=== PATIENT | male | born 1930 | race Caucasian/White ===

== ENCOUNTER 2017-02-20 22:20 | Inpatient (IN) | payer MEDICARE, OTHER ==
--- NOTE | ~2017-02-20 | CN ---
Consultation Report [facility] [address] [place]. [address] NAME: MACARENA DUMONT : 32 STATUS : ADM IN PAT#: [id number] AGE: 86 ADM/REG DATE : 02/21/17 MR#: [id number] REPORT SERV DATE: 02/21/17 DICTATED BY: JED ZARATE DATE: 02/21/17 REPORT STATUS : Draft TRANSCRIBED BY: MODL DATE: 02/21/17 GI CONSULTATION DATE OF CONSULTATION: 02/21/2017 REASON FOR CONSULTATION: Evaluation and management of ileus, fecal impaction in a patient with a history of chronic constipation. HISTORY OF PRESENT ILLNESS: Mr. Macarena Dumont is an 86-year-old male patient, who is known to Dr. Osman Jolly in the outpatient setting, who was admitted on 02/21/2017 with a chief complaint of abdominal pain, nausea with vomiting. CT scan done on admission without contrast showed a large amount of fecal material throughout the colon consistent with fecal impaction as well as some distended loops of small bowel. He has been given magnesium citrate as well as some other laxatives. He states he has had three bowel movements. He states his abdominal pain has improved and his nausea has subsided. His last colonoscopy was done on 11/16/2014 with adequate prep being obtained and internal hemorrhoids were the only finding. On 02/24/2015, he had a small bowel enteroscopy by Dr. 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 I have seen and evaluated the patient. He states that he takes Metamucil religiously, but only as needed Colace. He does not have a consistent bowel regimen. His abdominal pain at home increased over the last few days with the inability to pass gas or have a bowel movement. Then, he had developed nausea with vomiting bilious in nature. Thus, presented to [facility] for further evaluation. PAST MEDICAL HISTORY: Positive for chronic kidney disease, stage IV; history of obstructive sleep apnea; atrial fibrillation; diverticulitis; bladder cancer; iron deficiency anemia; AVMs; peripheral vascular disease; pancytopenia with frequent transfusions; compression fracture L1 vertebrae with kyphoplasty by Dr. Bosch; hypothyroidism; hypertension; hyperlipidemia; restless legs syndrome; Ash esophagus; gout; obstructive sleep apnea with CPAP usage; kidney stones; hemorrhoid, cerebral aneurysm with intracerebral hemorrhage in 05/2015; esophageal diverticula and patching; bladder cancer, status post excision. SURGICAL HISTORY: Carotid endarterectomy, CABG, cardiac stents, bladder tumor excision, inguinal hernia repair, Zenker diverticulum repair, and pacemaker placement. SOCIAL HISTORY: He is . He still lives independently. He denies alcohol, tobacco, or illicits. He has one daughter, who is present at the bedside. FAMILY HISTORY: Noncontributory from a GI standpoint. ALLERGIES: ADHESIVE TAPE. Consultation Report [address] [address] NAME: MACARENA DUMONT : 32 STATUS : ADM IN [facility]#: [id number] AGE: 86 ADM/REG DATE : 02/21/17 MR#: [id number] REPORT SERV DATE: 02/21/17 DICTATED BY: JED ZARATE DATE: 02/21/17 REPORT STATUS : Draft TRANSCRIBED BY: ESTELITA DATE: 02/21/17 HOME MEDICATIONS: Zyloprim, Enrique Aspirin, Tums, Colace, Lasix, Synthroid, Cozaar, minoxidil, Ditropan, Afrin, Protonix, potassium, Mirapex, Metamucil, Zocor, Hytrin, Maxzide, and Aranesp. REVIEW OF SYSTEMS: A 10-point review of systems has been obtained with pertinent positives being addressed in the history of present illness. PHYSICAL EXAMINATION: VITAL SIGNS: Temperature 98.4, pulse 80, respirations 18, blood pressure 92/54. NEURO: Reveals an alert male, resting in bed with no focal deficits. GENERAL: He is cooperative. He is in no acute distress at present. He is awake, alert, and oriented x3. HEAD, EARS, EYES, NOSE, AND THROAT: Anicteric. Pupils equal, round, reactive to light and accommodation. Normocephalic, atraumatic. NECK: No JVD. No palpable nodes. LUNGS: Clear in the upper lobes. Diminished bilaterally in the bases with normal respiratory effort exhibited. CARDIOVASCULAR SYSTEM: Regular rate and rhythm. ABDOMEN: Mildly distended with extremely hypoactive bowel sounds. No rebound or guarding elicited on exam. EXTREMITIES: No edema. Normal distal pulses. SKIN: Warm, dry, and intact. PERTINENT LABORATORY DATA: Sodium 143, potassium 4.0, BUN is 83, creatinine 3.04. White blood cell count 5.7, hemoglobin 9, hematocrit 28. INR 1.2. ASSESSMENT: 1. Abdominal pain, nausea, vomiting. 2. Ileus. 3. Fecal impaction. 4. Chronic constipation. PLAN: 1. Clear liquid diet. 2. Disimpaction and laxatives. 3. We need to set him up with a consistent bowel regimen at time of discharge. 4. Serial imaging until disimpaction has been achieved. We will follow. YONG/ESTELITA MARY GRACE Huff Consultation Report [address] [place]. [address] NAME: MACARENA DUMONT : 32 STATUS : ADM IN PAT#: [id number] AGE: 86 ADM/REG DATE : 02/21/17 MR#: [id number] REPORT SERV DATE: 02/21/17 DICTATED BY: JED ZARATE DATE: 02/21/17 REPORT STATUS : Draft TRANSCRIBED BY: ESTELITA DATE: 02/21/17 / [id number] CC: DO Julianna Mallory M.D.
--- NOTE | ~2017-02-20 | DS ---
Discharge Summary [facility] [address] [place]. [address] NAME: MACARENA DUMONT : 32 STATUS : DIS IN PAT#: [id number] AGE: 86 ADM/REG DATE : 02/21/17 MR#: [id number] REPORT SERV DATE: 02/27/17 DICTATED BY: MAMI LINK DATE: 02/23/17 REPORT STATUS : Draft TRANSCRIBED BY: MODL DATE: 02/23/17 ADMISSION DATE: 02/21/2017 DISCHARGE DATE: 02/23/2017 HOSPITAL COURSE: An 86-year-old male with known history of diverticulitis; bladder cancer; CKD, sees Dr. Mims with Aranesp administration as well; history of atrial fibrillation, seems to be proximal, however he is on no rate controlling medication as an outpatient, rate has been stable on day of discharge. He has a known history of MEKA, PAD, carotid disease, at one time required Plavix with aspirin full dose, history of pancytopenia, frequent transfusions, compression fracture of L1 vertebrae, kyphoplasty done by Dr. Bosch in the past, history of right upper lobe and pulmonary nodule should follow up with his outpatient ticket seller. The patient came in with severe abdominal pain with vomiting. He states that his takes care of him. He has about one bowel movement normally a day, then began to get constipated despite taking psyllium and Metamucil. The walked in the room, found him in the bathroom with severe pain, moaning. He had a CT of the abdomen and pelvis. Generalized ileus, no obstruction, seen to have impaction by me. The patient was started on Mag citrate. He have DU and CKD was given normal saline. The patient had two bowel movements. By the time I saw the patient he was already beginning to get disimpacted automatically. I D/C'd his triamterene/HCTZ given his DU, started him on Mag citrate. The patient dropped his hemoglobin significantly 9 to 6.9, I gave him 2 units of blood. A guaiac came back to be positive, it was mild, but the patient denied any overt melena nor hematochezia, it could have been a hard stool abrading against a hemorrhoid. GI had seen the patient too, tried to go lightly to clear. The patient had a reaction to Reglan, this is listed as an allergy. I placed the patient on PPI. I gave iron dextran today. The patient adamantly would like to go home. I would like the patient go to a facility for better monitoring, the patient wants go home. As a result, we will discharge home with home health, home PT, transfer facility as an outpatient. See GI in hopefully 1 to 3 weeks for possible scope in the interim. Needs to have no antiplatelets until he is cleared by GI as an outpatient and have 2 bowel movements a day as his goal with half of his plate being vegetables which the patient is a meat lover he attests. DISCHARGE MEDICATIONS: 1. Protonix 40 mg p.o. b.i.d. empirically. 2. Allopurinol 200 mg p.o. daily. 3. Dulcolax 10 mg per rectal b.i.d. 4. Synthroid 100 mcg p.o. q.a.m., we would repeat a free T4 as an outpatient. 5. Minoxidil 10 mg p.o. b.i.d. home dose. 6. Losartan 25 mg p.o. daily, would resume given his baseline creatinine is resumed. 7. Ditropan 10 mg p.o. q.a.m. 8. Protonix 40 mg p.o. b.i.d. 9. MiraLAX one packet p.o. b.i.d., titrate 2 bowel movements a day with his psyllium and this Dulcolax. 10.Mirapex 1.5 mg p.o. q.h.s. Discharge Summary [address] [address] NAME: MACARENA DUMONT : 32 STATUS : DIS IN PAT#: [id number] AGE: 86 ADM/REG DATE : 02/21/17 MR#: [id number] REPORT SERV DATE: 02/27/17 DICTATED BY: MAMI LINK DATE: 02/23/17 REPORT STATUS : Draft TRANSCRIBED BY: MODL DATE: 02/23/17 11.Zocor 20 mg p.o. q.h.s. 12.Hytrin 2 mg p.o. q.h.s. 13.Resume his aspirin likely is an 81 mg dose one sees GI as an outpatient. 14.Lasix 40 mg p.o. q.a.m. with KCl 20 mg p.o. daily. 15.Hydralazine 25 mg p.o. t.i.d. p.r.n. systolic more than 160. 16.Colace 100 mg p.o. b.i.d., p.r.n. We will also qualify the patient for oxygen if he needs to, discharge 2 L nasal cannula primary lung disease, this is the case we would need to have pulmonary function test and follow up with ticket seller. In the interim we will try incentive spirometry 10 times an hour give at home. CONSULTS: GI. PROCEDURES: None. He had a serial KUB that showed improved gas distention. Last bowel movement was last night. The patient feels ready to go home and adamantly would like to go home despite consideration for further workup, going to facility as well. DISCHARGE DIAGNOSES: 1. Chronic kidney disease. 2. Acute kidney injury. 3. History of bladder cancer. 4. Atrial fibrillation. 5. Compression fracture. 6. Osteoporosis. 7. History of coronary artery disease. 8. Coronary artery bypass graft. 9. Peripheral arterial disease. 10.Ileus. Educated on drinking at least 1.5 L of water a day to promote peristalsis. All questions were answered. It took well over 30 minutes to do. ADDENDUM I suspect patient may have some internal hemorrhoids. We will give him Anusol per rectal should follow up with GI. If the patient did have some mild guaiac positivity more likely result of hard stools, initial fecal impaction, past hard stool on to hemorrhoid. He was given IV iron, PRBC infusion prior. Discontinue any antiplatelets until possibly scoped as an outpatient. The patient seems interested at the age 86. Updated discharge MAR including Mag citrate p.r.n. target one to two bowel movements a day. Anusol p.r.n., needs to drink at least 1.5 L of water. The patient does not like water, I instructed to use flavoring solution. We will add losartan as he is back at his baseline of creatinine. Could consider use of just Plavix as an antiplatelet if he does have any bleeding risk on aspirin and Plavix. This is known history of PAD. See rest of my orders. All questions were answered, it took over 30 minutes to do. Discharge Summary [facility] [address] [place]. [address] NAME: MACARENA DUMONT : 32 STATUS : DIS IN PAT#: [id number] AGE: 86 ADM/REG DATE : 02/21/17 MR#: [id number] REPORT SERV DATE: 02/27/17 DICTATED BY: MAMI LINK DATE: 02/23/17 REPORT STATUS : Draft TRANSCRIBED BY: ESTELITA DATE: 02/23/17 DICTATED BY: Mami Link DO WST/ESTELITA Mami Link DO / [id number] / [id number] CC: DO Julianna Mallory M.D.
--- NOTE | ~2017-02-20 | HP ---
History And Physical [place] [id number] [place] [place]. [address] NAME: MACARENA DUMONT : 32 STATUS : ADM Nathalie PAT#: [id number] AGE: 86 ADM/REG DATE : 02/21/17 MR#: [id number] REPORT SERV DATE: 02/21/17 DICTATED BY: JAVI ANN DATE: 02/21/17 REPORT STATUS : Draft TRANSCRIBED BY: MODL DATE: 02/21/17 DATE OF ADMISSION: 02/21/2017 CHIEF COMPLAINT: Severe abdominal pain and vomiting. HISTORY OF PRESENT ILLNESS: This is an 86-year-old male, who has a history of diverticulitis, history of bladder cancer, chronic kidney disease, and atrial fibrillation who has been in his usual state of health and was brought in today after he had an episode of severe abdominal pain. History is obtained from the patient and his , who is at bedside, and reviewing data available on the [facility] system. According to the patient and his , he had been in his usual state of health until about a week or two ago, when he started having abdominal pain. His had noted that he spends most of his time in the bathroom trying to have bowel movements. He had tried Metamucil that he is on regularly. He had tried other oral [id number] stuff but nothing seemed to help him. Today, she walked into his room only to find him in the bathroom but this time when she saw him he had severe pain, was almost crying out and moaning that he wanted to see a doctor and needed help. She somehow was able to help him back to the bed and then called 911 for help. The patient was subsequently brought to the emergency room for evaluation. In the emergency room, initial workup including a CT scan of his abdomen and pelvis showed generalized ileus but without any obstruction. The patient also had acute on chronic kidney disease and severe abdominal pain, requiring intravenous administration of narcotic analgesics. Hospitalist Service is asked to admit him for further evaluation and treatment. At the time of my evaluation, he denied any chest pain, palpitations, or orthopnea. He did not have any cough, hemoptysis, night sweats, or weight loss. He has not had any recent fevers or chills. He did have an episode of nausea and vomiting while at home. In the emergency room, he had another episode as well. Both were bilious in nature. There was no blood. No history of diarrhea, hematemesis, hematochezia, or hematuria other than those mentioned above. PAST MEDICAL HISTORY: Significant for history of chronic kidney disease stage 4, history of obstructive sleep apnea, atrial fibrillation, history of diverticulitis, bladder cancer. He also has history of peripheral vascular disease, pancytopenia with frequent transfusions in the past, compression fracture of the L1 vertebra with kyphoplasty done by Dr. Bosch, and a history of right upper lobe nodule, pulmonary nodule as well. SOCIAL HISTORY: He does not smoke, drink, or use recreational drugs. FAMILY HISTORY: Noncontributory. MEDICATIONS: At home were reviewed by me in the chart today and reordered by me. REVIEW OF SYSTEMS: As in history of present illness. All other systems were reviewed in detail and are quite History And Physical [address] [address] NAME: MACARENA DUMONT : 32 STATUS : ADM Nathalie PAT#: [id number] AGE: 86 ADM/REG DATE : 02/21/17 MR#: [id number] REPORT SERV DATE: 02/21/17 DICTATED BY: JAVI ANN DATE: 02/21/17 REPORT STATUS : Draft TRANSCRIBED BY: ESTELITA DATE: 02/21/17 unremarkable. PHYSICAL EXAMINATION: GENERAL: This is a pleasant 86-year old, not in any acute distress. HEENT: His head is atraumatic, normocephalic. He is alert, awake, oriented to time, place, and person. Pupils are equal, reacting to light and accommodating. External ocular muscles are intact. Membranes are moist and pink. Sclerae are nonicteric. NECK: Supple with no jugular venous distention, lymphadenopathy, or thyromegaly. LUNGS: Clear to auscultation with no wheezes, rubs, or crackles. HEART: Heart sounds were regular with no murmurs, rubs, or gallops. ABDOMEN: Soft, nontender. Bowel sounds are present. EXTREMITIES: Showed no cyanosis, clubbing, or edema. NEUROLOGIC: Grossly intact. No focal sensory or motor deficits. Higher functions appeared intact. VITAL SIGNS: His vital signs today showed a temperature of 98.9, pulse 92, respirations 17 a minute, blood pressure was 124/59, oxygen saturation 97%, breathing 2 L of oxygen via nasal cannula. LABORATORY DATA: Reviewed on the [facility] system today showed sodium of 144, potassium 3.7, chloride 107, CO2 of 25, BUN was 79 with a creatinine of 3.20 which is up from his baseline. His blood glucose was 149. Lipase was 102 today. Alkaline phosphatase, ALT, and AST were within normal limits. CBC showed a white blood cell count of 6900, hemoglobin was 9, hematocrit 27.8 which is about his baseline. MCV was 93.6, and platelet count was 140,000. Urinalysis today did not reveal any gross abnormality. Films of the CT scan of his abdomen pelvis were reviewed by me, and official radiology report was also reviewed. This is virtual read which said generalized ileus with no obstruction or other significant abnormalities. IMPRESSION: 1. Abdominal pain. 2. Ileus. 3. Nausea and vomiting. 4. Coronary artery disease with coronary artery bypass graft. 5. Hypothyroidism. 6. Acute on chronic kidney disease stage 4. 7. Obstructive sleep apnea. 8. History of atrial fibrillation. 9. History of diverticulitis. 10.History of bladder cancer. 11.Peripheral vascular disease. 12.Pancytopenia. PLAN: We will admit Mr. Dumont to the Hospitalist Service with defensive monitoring. This will be for a 24-hour observation period. We will keep him n.p.o. for now. Start him on IV fluids for volume resuscitation. We will provide intravenous Zofran and Phenergan for any nausea and vomiting, and again, we will keep him n.p.o. Regarding his ileus, he does have a History And Physical [address] [address] NAME: MACARENA DUMONT : 32 STATUS : ADM Nathalie PAT#: [id number] AGE: 86 ADM/REG DATE : 02/21/17 MR#: [id number] REPORT SERV DATE: 02/21/17 DICTATED BY: JAVI ANN DATE: 02/21/17 REPORT STATUS : Draft TRANSCRIBED BY: MODFrance DATE: 02/21/17 history of prior gastroparesis although this is per one of his prior history and physicals. We will go ahead and consult Gastroenterology Service to see him in the morning. Otherwise provide pain medications for his pain on an as-needed basis and antiemetics as well. We will continue other medications at this time and place him on unfractionated heparin for DVT prophylaxis while he is here. I have discussed the above plans with the patient and the family. Questions were answered. They are agreeable to the above recommendations. Hospitalist Service will be following him during his stay here. /ESTELITA Javi Ann M.D. / [id number] CC: DO Julianna Mallory M.D.
[2017-02-20 21:29] LABS: BASOPHILS 0.1 %; BASOPHILS ABSOLUTE 0.01 10/3/uL (0.0-0.16); EOSINOPHILS 0.6 %; EOSINOPHILS ABSOLUTE 0.04 10/3/uL (0.0-0.53); HEMATOCRIT 27.8 % (40.0-51.0); IMMATURE GRANULOCYTES 0.1 %; IMMATURE GRANULOCYTES ABSOLUTE 0.01 10/3/uL (0.0-0.11); LYMPHOCYTES 5.2 %; LYMPHOCYTES ABSOLUTE 0.36 10/3/uL (0.67-4.30); MANUAL DIFF NO %; MEAN CORPUS HGB CONC 32.4 g/dL (32.0-36.0); MEAN CORPUSCULAR HEMOGLOB 30.3 pg (26.0-34.0); MEAN CORPUSCULAR VOLUME 93.6 fL (80-100); MEAN PLATELET VOLUME 9.6 fL (9.2-13.0); MONOCYTES 3.5 %; MONOCYTES ABSOLUTE 0.24 10/3/uL (0.21-1.20); NEUTROPHILS 90.5 %; NEUTROPHILS ABSOLUTE 6.26 10/3/uL (2.02-8.40); PLATELET COUNT 140 10/3/uL (150-400); RBC DISTRIBUTION WIDTH 18.1 % (12.0-16.0); RED CELL COUNT 2.97 10/6/uL (4.7-6.1); WHITE BLOOD CELLS 6.9 10/3/uL (4.5-10.5)
[2017-02-20 21:36] LABS: INTERNATIONAL NORMAL RATI 1.2 UNITS (-); PARTIAL THROMBO TIME 25.1 SEC (22.5-37.2); PROTIME (NOT ORD) 14.9 SEC (12.0-14.5)
[2017-02-20 21:57] LABS: BUN (BLOOD UREA NITROGEN) 79 MG/DL (6-23); CALCIUM, SERUM 9.5 MG/DL (8.5-10.4); CHLORIDE, SERUM 107 MMOL/L (96-112); POTASSIUM, SERUM 3.7 MMOL/L (3.5-5.3); SGOT(AST) 20 U/L (5-40); SGPT(ALT) 19 U/L (5-65); SODIUM, SERUM 144 MMOL/L (135-148); TOTAL BILIRUBIN 0.5 MG/DL (0-1.2); TOTAL PROTEIN 7.3 G/DL (6.0-8.5)
[2017-02-20 21:58] LABS: A/G RATIO 1.2 (0.7-1.9); ALKALINE PHOSPHATASE 117 U/L (45-117); CO2 (CARBON DIOXIDE) 25 MMOL/L (24-34); GFR AFRICAN AMERICAN 20 ML/MIN (>=60); GFR NON AFRICAN AMERICAN 17 ML/MIN (>=60); GLOBULIN 3.3 G/DL (2.5-4.1); GLUCOSE, SERUM 149 MG/DL (60-99)
[~2017-02-20 22:20] MED LIST: *UNABLE1; ACET500CAP PO; ARANESP IM; ARANESP IV; ARANESP100 IV; ARANESP100 SC; ASA5GR PO; ASAB PO; BUM2 PO; CARDURA1 MG PO; CAT1 PO; CEFT5 PO; COZ50 PO; COZAAR100 MG PO; CYANO1000T PO; DITRO5 PO; DSS PO; DYAZIDE PO; HYT2 PO; IRON INFUSION IM; IRON INFUSION INF; IRON INFUSION IV; K-TABS10 MEQ PO; KLOR-CON M2020 MEQ PO; KLOR-CON20 MEQ PO; L40 PO; L80 PO; LONITEN10 PO; MAXZIDE PO; METAMUCIL CAN7 OZ PO; MIRAPEX1.5 MG PO; NORV10 PO; OTC NASAL SPRAY NAS; PLAVIX PO; PRILO PO; PROTONIX PO; RANITIDINE300 MG PO; REQUIP2 PO; SYN.025B PO; SYN.05 PO; SYN075 PO; SYN1 PO; T PO; TUMSROLL PO; VENTOLIN HFA INH; VITAMIN B-121000 MC1 SL; Z100 PO; ZANTAC300 MG PO; ZOCOR20 PO; ZOCOR40 PO
[2017-02-21 00:24] LABS: ASCORBIC ACID (UR NOT ORDER) NEG (NEG); BILIRUBIN, URINE NEGATIVE (NEG); ER URINALYSIS TAT 0 Hrs 00 Mins; KETONE, URINE NEGATIVE (NEG); LEUKOCYTE ESTERASE(NOT OR NEG (NEG); NITRITE (URINE) NEG (NEG); WBC (NOT ORDERED) (RFLEX) 1 (0-5)
[2017-02-21] MEDS ORDERED: LONITEN10 PO (00:24)
[2017-02-21] MEDS ORDERED: COZAAR100 MG PO (00:25)
[2017-02-21] MEDS ORDERED: HYT2 PO (00:25)
[2017-02-21] MEDS ORDERED: MAXZIDE PO (00:25)
[2017-02-21] MEDS ORDERED: ZOCOR20 PO (00:25)
[2017-02-21] MEDS ORDERED: MIRAPEX1.5 MG PO (00:25)
[2017-02-21] MEDS ORDERED: SYN1 PO (00:26)
[2017-02-21] MEDS ORDERED: PROTONIX PO (00:26)
[2017-02-21] MEDS ORDERED: KDUR20 PO (00:26)
[2017-02-21] MEDS ORDERED: L80 PO (00:26)
[2017-02-21] MEDS ORDERED: Z100 PO (00:26)
[2017-02-21] MEDS ORDERED: ASABAYER PO (00:27)
[2017-02-21] MEDS ORDERED: DITRO5 PO (00:27)
[2017-02-21] MEDS ORDERED: ARANESP IV (00:30)
[2017-02-21] MEDS ORDERED: DSS PO (00:32)
[2017-02-21] MEDS ORDERED: TUMSROLL PO (00:32)
[2017-02-21] MEDS ORDERED: METPAKSF PO (00:33)
[2017-02-21] MEDS ORDERED: AFRIN15 NAS (00:33)
[2017-02-21 07:05] LABS: BASOPHILS 0.2 %; BASOPHILS ABSOLUTE 0.01 10/3/uL (0.0-0.16); EOSINOPHILS 0.4 %; EOSINOPHILS ABSOLUTE 0.02 10/3/uL (0.0-0.53); IMMATURE GRANULOCYTES 0.2 %; IMMATURE GRANULOCYTES ABSOLUTE 0.01 10/3/uL (0.0-0.11); LYMPHOCYTES 13.4 %; LYMPHOCYTES ABSOLUTE 0.76 10/3/uL (0.67-4.30); MANUAL DIFF NO %; MEAN CORPUS HGB CONC 32.1 g/dL (32.0-36.0); MEAN CORPUSCULAR HEMOGLOB 30.5 pg (26.0-34.0); MEAN CORPUSCULAR VOLUME 94.9 fL (80-100); MEAN PLATELET VOLUME 9.5 fL (9.2-13.0); MONOCYTES 5.6 %; MONOCYTES ABSOLUTE 0.32 10/3/uL (0.21-1.20); NEUTROPHILS 80.2 %; NEUTROPHILS ABSOLUTE 4.55 10/3/uL (2.02-8.40); PLATELET COUNT 138 10/3/uL (150-400); RBC DISTRIBUTION WIDTH 18.4 % (12.0-16.0); RED CELL COUNT 2.95 10/6/uL (4.7-6.1); WHITE BLOOD CELLS 5.7 10/3/uL (4.5-10.5)
[2017-02-21 07:18] LABS: BUN (BLOOD UREA NITROGEN) 83 MG/DL (6-23); CALCIUM, SERUM 9.2 MG/DL (8.5-10.4); CHLORIDE, SERUM 109 MMOL/L (96-112); CO2 (CARBON DIOXIDE) 24 MMOL/L (24-34); CREATININE 3.04 MG/DL (0.70-1.30); GFR AFRICAN AMERICAN 21 ML/MIN (>=60); GFR NON AFRICAN AMERICAN 18 ML/MIN (>=60); GLUCOSE, SERUM 128 MG/DL (60-99); PHOSPHORUS, SERUM 4.4 MG/DL (2.5-4.5); SODIUM, SERUM 143 MMOL/L (135-148)
[2017-02-22 06:52] LABS: BASOPHILS 0 %; EOSINOPHILS 1.3 %; EOSINOPHILS ABSOLUTE 0.05 10/3/uL (0.0-0.53); IMMATURE GRANULOCYTES 0.3 %; IMMATURE GRANULOCYTES ABSOLUTE 0.01 10/3/uL (0.0-0.11); LYMPHOCYTES 21.9 %; LYMPHOCYTES ABSOLUTE 0.86 10/3/uL (0.67-4.30); MEAN CORPUS HGB CONC 31.7 g/dL (32.0-36.0); MEAN CORPUSCULAR HEMOGLOB 30.1 pg (26.0-34.0); MEAN CORPUSCULAR VOLUME 95.2 fL (80-100); MEAN PLATELET VOLUME 10.1 fL (9.2-13.0); MONOCYTES 5.6 %; MONOCYTES ABSOLUTE 0.22 10/3/uL (0.21-1.20); NEUTROPHILS 70.9 %; NEUTROPHILS ABSOLUTE 2.79 10/3/uL (2.02-8.40); PLATELET COUNT 113 10/3/uL (150-400); RBC DISTRIBUTION WIDTH 18.9 % (12.0-16.0); WHITE BLOOD CELLS 3.9 10/3/uL (4.5-10.5)
[2017-02-22 06:55] LABS: HEMATOCRIT 21.8 % (40.0-51.0); HEMOGLOBIN 6.9 g/dL (13.6-17.8); RED CELL COUNT 2.29 10/6/uL (4.7-6.1)
[2017-02-22 06:56] LABS: MANUAL DIFF NO %
[2017-02-22 06:59] LABS: BUN (BLOOD UREA NITROGEN) 85 MG/DL (6-23); CALCIUM, SERUM 8.4 MG/DL (8.5-10.4); CHLORIDE, SERUM 107 MMOL/L (96-112); CREATININE 2.59 MG/DL (0.70-1.30); GFR AFRICAN AMERICAN 25 ML/MIN (>=60); GFR NON AFRICAN AMERICAN 22 ML/MIN (>=60); GLUCOSE, SERUM 108 MG/DL (60-99); POTASSIUM, SERUM 3.6 MMOL/L (3.5-5.3); SODIUM, SERUM 143 MMOL/L (135-148)
[2017-02-22 07:00] LABS: CO2 (CARBON DIOXIDE) 29 MMOL/L (24-34); PHOSPHORUS, SERUM 2.5 MG/DL (2.5-4.5)
[2017-02-23 07:42] LABS: BASOPHILS 0 %; EOSINOPHILS 3.2 %; EOSINOPHILS ABSOLUTE 0.12 10/3/uL (0.0-0.53); HEMATOCRIT 28.7 % (40.0-51.0); HEMOGLOBIN 9.4 g/dL (13.6-17.8); LYMPHOCYTES 26.4 %; LYMPHOCYTES ABSOLUTE 0.99 10/3/uL (0.67-4.30); MANUAL DIFF NO %; MEAN CORPUS HGB CONC 32.8 g/dL (32.0-36.0); MEAN CORPUSCULAR HEMOGLOB 29.9 pg (26.0-34.0); MEAN CORPUSCULAR VOLUME 91.4 fL (80-100); MEAN PLATELET VOLUME 9.8 fL (9.2-13.0); MONOCYTES 7.7 %; MONOCYTES ABSOLUTE 0.29 10/3/uL (0.21-1.20); NEUTROPHILS 62.7 %; NEUTROPHILS ABSOLUTE 2.35 10/3/uL (2.02-8.40); PLATELET COUNT 109 10/3/uL (150-400); RBC DISTRIBUTION WIDTH 19.5 % (12.0-16.0); RED CELL COUNT 3.14 10/6/uL (4.7-6.1); WHITE BLOOD CELLS 3.8 10/3/uL (4.5-10.5)
[2017-02-23 08:03] LABS: CALCIUM, SERUM 8.8 MG/DL (8.5-10.4); CHLORIDE, SERUM 103 MMOL/L (96-112); CO2 (CARBON DIOXIDE) 32 MMOL/L (24-34); GLUCOSE, SERUM 104 MG/DL (60-99); PHOSPHORUS, SERUM 2.7 MG/DL (2.5-4.5); POTASSIUM, SERUM 3.4 MMOL/L (3.5-5.3); SODIUM, SERUM 140 MMOL/L (135-148)
[2017-02-23 08:05] LABS: BUN (BLOOD UREA NITROGEN) 63 MG/DL (6-23); CREATININE 1.97 MG/DL (0.70-1.30); GFR AFRICAN AMERICAN 35 ML/MIN (>=60); GFR NON AFRICAN AMERICAN 30 ML/MIN (>=60)
[2017-02-23] MEDS ORDERED: APRES25 PO (11:16)
[2017-02-23] MEDS ORDERED: COZ25 PO (11:18)
[2017-02-23] MEDS ORDERED: MIRALAX POWDER1 PKT PO (11:18)
[2017-02-23] MEDS ORDERED: BISR PR (11:18)
[2017-02-24 06:33] LABS: BASOPHILS 0 %; EOSINOPHILS 2.1 %; EOSINOPHILS ABSOLUTE 0.07 10/3/uL (0.0-0.53); HEMATOCRIT 26.8 % (40.0-51.0); HEMOGLOBIN 8.9 g/dL (13.6-17.8); IMMATURE GRANULOCYTES 0.3 %; IMMATURE GRANULOCYTES ABSOLUTE 0.01 10/3/uL (0.0-0.11); LYMPHOCYTES 24.7 %; LYMPHOCYTES ABSOLUTE 0.82 10/3/uL (0.67-4.30); MEAN CORPUS HGB CONC 33.2 g/dL (32.0-36.0); MEAN CORPUSCULAR HEMOGLOB 30.8 pg (26.0-34.0); MEAN CORPUSCULAR VOLUME 92.7 fL (80-100); MEAN PLATELET VOLUME 10.8 fL (9.2-13.0); MONOCYTES 8.4 %; MONOCYTES ABSOLUTE 0.28 10/3/uL (0.21-1.20); NEUTROPHILS 64.5 %; NEUTROPHILS ABSOLUTE 2.14 10/3/uL (2.02-8.40); PLATELET COUNT 106 10/3/uL (150-400); RBC DISTRIBUTION WIDTH 19.1 % (12.0-16.0); RED CELL COUNT 2.89 10/6/uL (4.7-6.1); WHITE BLOOD CELLS 3.3 10/3/uL (4.5-10.5)
[2017-02-24 06:34] LABS: MANUAL DIFF NO %
[2017-02-24 06:41] LABS: CALCIUM, SERUM 8.5 MG/DL (8.5-10.4); CHLORIDE, SERUM 106 MMOL/L (96-112); CO2 (CARBON DIOXIDE) 30 MMOL/L (24-34); CREATININE 1.85 MG/DL (0.70-1.30); GFR AFRICAN AMERICAN 38 ML/MIN (>=60); GFR NON AFRICAN AMERICAN 33 ML/MIN (>=60); GLUCOSE, SERUM 101 MG/DL (60-99); PHOSPHORUS, SERUM 2.8 MG/DL (2.5-4.5); POTASSIUM, SERUM 3.7 MMOL/L (3.5-5.3); SODIUM, SERUM 142 MMOL/L (135-148)
[2017-02-24 06:42] LABS: BUN (BLOOD UREA NITROGEN) 53 MG/DL (6-23)
[2017-02-25 05:36] LABS: BASOPHILS 0.3 %; BASOPHILS ABSOLUTE 0.01 10/3/uL (0.0-0.16); EOSINOPHILS 4.9 %; EOSINOPHILS ABSOLUTE 0.16 10/3/uL (0.0-0.53); HEMATOCRIT 27.6 % (40.0-51.0); HEMOGLOBIN 8.9 g/dL (13.6-17.8); IMMATURE GRANULOCYTES 0.3 %; IMMATURE GRANULOCYTES ABSOLUTE 0.01 10/3/uL (0.0-0.11); LYMPHOCYTES 28.4 %; LYMPHOCYTES ABSOLUTE 0.92 10/3/uL (0.67-4.30); MEAN CORPUS HGB CONC 32.2 g/dL (32.0-36.0); MEAN CORPUSCULAR HEMOGLOB 30.3 pg (26.0-34.0); MEAN CORPUSCULAR VOLUME 93.9 fL (80-100); MEAN PLATELET VOLUME 10.6 fL (9.2-13.0); MONOCYTES 7.4 %; MONOCYTES ABSOLUTE 0.24 10/3/uL (0.21-1.20); NEUTROPHILS 58.7 %; PLATELET COUNT 113 10/3/uL (150-400); RBC DISTRIBUTION WIDTH 18.3 % (12.0-16.0); RED CELL COUNT 2.94 10/6/uL (4.7-6.1); WHITE BLOOD CELLS 3.2 10/3/uL (4.5-10.5)
[2017-02-25 05:43] LABS: MANUAL DIFF NO %
[2017-02-25 05:45] LABS: CALCIUM, SERUM 8.9 MG/DL (8.5-10.4); CHLORIDE, SERUM 106 MMOL/L (96-112); CO2 (CARBON DIOXIDE) 28 MMOL/L (24-34); CREATININE 1.65 MG/DL (0.70-1.30); GFR AFRICAN AMERICAN 44 ML/MIN (>=60); GFR NON AFRICAN AMERICAN 38 ML/MIN (>=60); GLUCOSE, SERUM 96 MG/DL (60-99); PHOSPHORUS, SERUM 2.7 MG/DL (2.5-4.5); POTASSIUM, SERUM 3.9 MMOL/L (3.5-5.3); SODIUM, SERUM 141 MMOL/L (135-148)
[2017-02-25 05:46] LABS: BUN (BLOOD UREA NITROGEN) 43 MG/DL (6-23)
[2017-02-26] MEDS ORDERED: MAGNESIUM CITRATE PO (16:21)
[2017-02-26] MEDS ORDERED: ANUSOL-HC25 MG PR (16:30)
[2017-03-24] MEDS ORDERED: LONITEN10 PO (03:34)
[2017-03-24] MEDS ORDERED: HYT2 PO (03:35)
[2017-03-24] MEDS ORDERED: LIPITOR10 PO (03:36)
[2017-03-24] MEDS ORDERED: DYAZIDE1 CAP PO (03:36)
[2017-03-24] MEDS ORDERED: SYN1 PO (03:37)
[2017-03-24] MEDS ORDERED: COZ50 PO (03:37)
[2017-03-24] MEDS ORDERED: MIRAPEX1.5 MG PO (03:37)
[2017-03-24] MEDS ORDERED: PROTONIX PO (03:38)
[2017-03-24] MEDS ORDERED: KDUR20 PO (03:39)
[2017-03-24] MEDS ORDERED: Z100 PO (03:39)
[2017-03-24] MEDS ORDERED: L40 PO (03:40)
[2017-03-24] MEDS ORDERED: ASA5GR PO (03:40)
[2017-03-24] MEDS ORDERED: DITROPAN XL10 MG PO (03:40)
[2017-03-24] MEDS ORDERED: IRON INFUSION (03:42)
[2017-03-24] MEDS ORDERED: ARANESP100 (03:43)
[2017-05-11] MEDS ORDERED: LEVAQUIN750 MG PO (07:30)
[2017-05-11] MEDS ORDERED: DSS PO (07:31)
[2017-05-11] MEDS ORDERED: MIRALAX POWDER1 PKT PO (07:33)
[2017-05-11] MEDS ORDERED: CONSTULOSE PO (07:35)
[2017-05-11] MEDS ORDERED: PRILO PO (07:36)
[2017-05-11] MEDS ORDERED: PRENAVITE PO (07:36)
[2017-05-11] MEDS ORDERED: VITC500 PO (07:37)
== END 2017-02-26 18:04 | disposition home or self-care (01) | DRG 394 ==
LOC: ER 22:20 → 5SO 02-21 01:34
PROVIDERS: Internal Medicine; Nurse Practitioner Acute Care
PROC: 30233N1 Transfusion of Nonautologous Red Blood Cells into Peripheral Vein, Percutaneous Approach (ICD-10-PCS; principal; 2017-02-22)
DX: K64.8 Other hemorrhoids (principal); N17.9 Acute kidney failure, unspecified; D61.818 Other pancytopenia; N18.4 Chronic kidney disease, stage 4 (severe); K56.7 Ileus, unspecified; I48.2 Chronic atrial fibrillation; I73.9 Peripheral vascular disease, unspecified; D62 Acute posthemorrhagic anemia; Z85.51 Personal history of malignant neoplasm of bladder; I25.10 Atherosclerotic heart disease of native coronary artery without angina pectoris; Z95.5 Presence of coronary angioplasty implant and graft; K56.41 Fecal impaction; Z79.899 Other long term (current) drug therapy; Z79.82 Long term (current) use of aspirin
CPT/HCPCS: 36415; 74000; 74176; 80048; 80053; 81001; 82272; 83690; 83735; 84100; 84443; 85025; 85610; 85730; 86850; 86900; 86901; 86920; 96374; 97116-GP; 97161-GP; 99285; A9270-GY; C9113; G8978-CK-GP; G8979-CI-GP; J1750; J1940; J2405; J2765; P9016